=== PATIENT | male | born 1980 | race Caucasian/White ===

== ENCOUNTER 2023-10-12 23:33 | Emergency (ER) | payer MEDICAID ==
[~2023-10-12] VITALS: Ht 175.3 cm; Wt 87.0 kg
[~2023-10-12 23:33] MED LIST: LISI-186 PO; METF-416 PO
[2023-10-12 23:52] VITALS: BP 147/89; PULSE 96; RESP 16; TEMP 98; O2SAT 98
[2023-10-13] MEDS ORDERED: KETOROLAC 15MG/ML VIAL IM ONE (00:15)
[2023-10-13] MEDS ORDERED: LIDO700A15 TP (00:44)
[2023-10-13] MEDS ORDERED: NAPR-1176 MT (00:44)
[2023-10-13] MEDS ORDERED: KETOROLAC 15MG/ML VIAL IM NR (02:30)
== END 2023-10-13 03:29 | disposition home or self-care (01) ==
LOC: ER 23:33
DX: M54.30 Sciatica, unspecified side (principal); E11.9 Type 2 diabetes mellitus without complications; I10 Essential (primary) hypertension; Z79.899 Other long term (current) drug therapy
CPT/HCPCS: 99283; J1885

== ENCOUNTER 2024-10-22 23:51 | Emergency (ER) | payer MEDICAID, OTHER ==
[~2024-10-22] VITALS: Ht 167.6 cm; Wt 91.0 kg
[~2024-10-22 23:51] MED LIST changes: +LIDO-53 TP; +NAPR-1176 MT
[2024-10-23 00:13] VITALS: O2SAT 99
[2024-10-23] MEDS: LIDOCAINE 5% PATCH TOP SCH (00:58)
[2024-10-23] MEDS: KETOROLAC 15MG/ML VIAL IM ONE (00:59)
[2024-10-23 01:43] LABS: CLARITY URINE CLEAR (CLEAR); COLOR URINE YELLOW (YELLOW); GLUCOSE URINE 3+ (NEGATIVE); KETONES URINE NEGATIVE (NEGATIVE); LEUKOCYTE ESTERASE URINE NEGATIVE (NEGATIVE); NITRITE URINE NEGATIVE (NEGATIVE); OCCULT BLOOD URINE 1+ (NEGATIVE); PH URINE 5.5 (4.5-8.0); PROTEIN URINE 2+ (NEGATIVE); SPECIFIC GRAVITY URINE 1.029 (1.005-1.030); UROBILINOGEN URINE 2.0 E.U./dL (0.2-1.0)
[2024-10-23 02:17] LABS: BACTERIA URINE NONE SEEN; RBC URINE 0-2 /hpf (0-2); SQUAMOUS EPITHELIAL CELL URINE NONE SEEN /lpf (RARE/1+); WBC URINE 0-2 /hpf (0-2)
[2024-10-23 02:36] VITALS: BP 131/79; PULSE 69; RESP 12; TEMP 37.1; O2SAT 99
== END 2024-10-23 02:41 | disposition home or self-care (01) ==
LOC: ER 23:51
DX: M54.50 Low back pain, unspecified (principal); M25.562 Pain in left knee; M25.561 Pain in right knee; E11.9 Type 2 diabetes mellitus without complications; Z88.8 Allergy status to other drugs, medicaments and biological substances; Z79.899 Other long term (current) drug therapy; W01.0XXA Fall on same level from slipping, tripping and stumbling without subsequent striking against object, initial encounter; Y93.89 Activity, other specified; Y92.89 Other specified places as the place of occurrence of the external cause; Y99.8 Other external cause status
CPT/HCPCS: 99283; 81003; 96372; J1885; Z7610

== ENCOUNTER 2025-01-05 17:30 | Emergency (ER) | payer OTHER ==
[~2025-01-05] VITALS: Ht 175.3 cm; Wt 91.0 kg
[2025-01-05 17:35] VITALS: TEMP 36.8; O2SAT 98
[2025-01-05] MEDS ORDERED: IBUP-1455 MT (20:01)
[2025-01-05] MEDS ORDERED: METH-653 MT (20:01)
[2025-01-05] MEDS ORDERED: LIDO-53 TP (20:01)
[2025-01-05 20:25] VITALS: BP 133/85; PULSE 83; RESP 18; O2SAT 98
== END 2025-01-05 20:31 | disposition home or self-care (01) ==
LOC: ER 17:30
DX: S33.5XXA Sprain of ligaments of lumbar spine, initial encounter (principal); E11.9 Type 2 diabetes mellitus without complications; Z79.1 Long term (current) use of non-steroidal anti-inflammatories (NSAID); Z79.84 Long term (current) use of oral hypoglycemic drugs; Z79.899 Other long term (current) drug therapy; X58.XXXA Exposure to other specified factors, initial encounter; Y93.89 Activity, other specified; Y92.89 Other specified places as the place of occurrence of the external cause; Y99.8 Other external cause status
CPT/HCPCS: 99283

== ENCOUNTER 2025-01-12 11:26 | Emergency (ER) | payer OTHER ==
[~2025-01-12] VITALS: Ht 175.3 cm; Wt 85.0 kg
[~2025-01-12 11:26] MED LIST changes: +IBUP-1455 MT; +METH-653 MT
[2025-01-12 11:31] VITALS: O2SAT 100
[2025-01-12] MEDS: MAGNESIUM/ALUMINUM HYDROXIDE/SIMETHICONE 30ML UDC PO ONE (12:26)
[2025-01-12] MEDS: METOCLOPRAMIDE HCL 10MG/2ML VIAL IV ONE (12:26)
[2025-01-12] MEDS: PANTOPRAZOLE SODIUM 40 MG/VIAL IV ONE (12:27)
[2025-01-12] MEDS: KETOROLAC 30MG/ML VIAL IV ONE (12:28)
[2025-01-12] MEDS: SODIUM CHLORIDE 0.9% 1,000 ML IV ONE (12:36)
[2025-01-12 12:56] LABS: BASOPHILS % 0.4 % (0.0-2.0); EOSINOPHILS % 0.5 % (0.0-5.0); HEMATOCRIT. 44.4 % (42.0-52.0); HEMOGLOBIN. 15.4 g/dL (14.0-18.0); LYMPHOCYTES % 27.8 % (20.0-50.0); MEAN PLATELET VOLUME 8.4 fl (7.4-10.4); MONOCYTES % 8.8 % (2.0-8.0); NEUTROPHILS % 62.5 % (40.0-76.0); PLATELET 251 x1000/uL (130-400); RED BLOOD CELL COUNT 5.24 mill/uL (4.7-6.1); RED CELL DISTRIBUTION WIDTH 13.1 % (11.6-14.6)
[2025-01-12 13:04] LABS: CREATININE 1.2 mg/dL (0.6-1.3); ETHANOL BLOOD < 10 mg/dL (<10); UREA NITROGEN BLOOD 20 mg/dL (9-23)
[2025-01-12 13:06] LABS: ASPARTATE AMINOTRANSFERASE 18 IU/L (<34); BILIRUBIN DIRECT 0.3 mg/dL (<=3.0); BILIRUBIN TOTAL 1.0 mg/dL (0.1-1.0); PROTEIN TOTAL 7.1 g/dL (6.0-8.3)
[2025-01-12] MEDS ORDERED: POLY17PO3 MT (15:15)
[2025-01-12 15:23] VITALS: BP 136/80; PULSE 98; RESP 18; TEMP 36.7; O2SAT 100
== END 2025-01-12 15:24 | disposition home or self-care (01) ==
LOC: ER 11:42
DX: K29.70 Gastritis, unspecified, without bleeding (principal); K59.00 Constipation, unspecified; E11.9 Type 2 diabetes mellitus without complications; Z79.1 Long term (current) use of non-steroidal anti-inflammatories (NSAID); Z79.84 Long term (current) use of oral hypoglycemic drugs; Z79.899 Other long term (current) drug therapy; Z87.19 Personal history of other diseases of the digestive system
CPT/HCPCS: 80076; 80048; 80320; 83690; 85025; 36415; 74176; 76705; 96361; 96374; 96375; 99285; J1885; J2765; J2470; J7030; G0480